=== PATIENT | female | born 1970 | race Native Hawaiian/Other Pacific Islander ===

== ENCOUNTER 2019-04-23 23:08 | Emergency (ER) | payer BC ==
[2019-04-23 23:12] VITALS: TEMP 97.5
--- NOTE | 2019-04-23 23:26 | ED ---
General Adult HPI - General Chief complaint: Shortness of Breath Stated complaint: Shortness of Breath Time Seen by Provider: 04/23/19 23:14 Source: patient Mode of arrival: ambulatory Limitations: no limitations - History of Present Illness Initial comments: This patient is a 49-year-old woman who presents today to be evaluated because she felt like she was having a hard time taking a deep breath in. She states that this came on this evening after she had taken a Claritin D for some sinus congestion that she was having. Patient states that she then felt like she was not getting a full breath. She was not frankly having chest pain or discomfort. She states that that didn't feel like she was short of breath. She has not had fevers or productive cough. No leg pain or swelling. No pleuritic pain no hemoptysis. Onset/Timin -: hour(s) Location: chest Consistency: constant Improves with: none Worsens with: none Associated Symptoms: denies other symptoms Treatments Prior to Arrival: none - Related Data Allergies Allergy/AdvReac Type Severity Reaction Status Date / Time No Known Allergies Allergy Verified 04/23/19 23:12 Review of Systems ROS Statement: Those systems with pertinent positive or pertinent negative responses have been documented in the HPI. ROS Other: All systems not noted in ROS Statement are negative. Constitutional: Denies: fever, chills ENT: Reports: congestion. Denies: throat pain Respiratory: Reports: as per HPI. Denies: cough, dyspnea, wheezes Cardiovascular: Denies: chest pain, palpitations, dyspnea on exertion, edema, syncope Gastrointestinal: Denies: abdominal pain, vomiting, diarrhea Skin: Denies: rash Neurological: Denies: headache, weakness Past Medical History Past Medical History: No Reported History History of Any Multi-Drug Resistant Organisms: None Reported Past Surgical History: No Surgical Hx Reported Past Psychological History: No Psychological Hx Reported Smoking Status: Never smoker Past Alcohol Use History: None Reported Past Drug Use History: None Reported General Exam Limitations: no limitations General appearance: alert, in no apparent distress Head exam: Present: atraumatic, normocephalic Eye exam: Present: normal appearance. Absent: scleral icterus, conjunctival injection ENT exam: Present: normal oropharynx Neck exam: Present: normal inspection Respiratory exam: Present: normal lung sounds bilaterally. Absent: respiratory distress, wheezes, rales, rhonchi, stridor, chest wall tenderness, accessory muscle use, decreased breath sounds, prolonged expiratory Cardiovascular Exam: Present: regular rate, normal rhythm, normal heart sounds. Absent: systolic murmur, diastolic murmur, rubs, gallop GI/Abdominal exam: Present: soft. Absent: distended, tenderness, guarding Back exam: Present: normal inspection Neurological exam: Present: alert Skin exam: Present: warm, dry, intact, normal color. Absent: rash Course Vital Signs 04/23/19 04/24/19 23:09 00:30 Temperature 97.5 F L Pulse Rate 89 78 Respiratory 18 19 Rate Blood Pressure 155/94 144/86 O2 Sat by Pulse 97 Oximetry EKG Findings - EKG Results: EKG: interpreted by AIRAM HUGHESL, sinus rhythm (Rate 81 bpm), normal axis, normal QRS, normal ST/T - VA, Pacemaker, Normal: Normal tracing: normal tracing Medical Decision Making - Lab Data Result diagrams: 04/23/19 23:20 04/23/19 23:20 Lab Results 04/23/19 04/23/19 04/23/19 Range/Units 23:20 23:20 23:20 WBC 9.7 (3.8-10.6) k/uL RBC 5.01 (3.80-5.40) m/uL Hgb 15.1 (11.4-16.0) gm/dL Hct 44.1 (34.0-46.0) % MCV 88.1 (80.0-100.0) fL MCH 30.0 (25.0-35.0) pg MCHC 34.1 (31.0-37.0) g/dL RDW 12.6 (11.5-15.5) % Plt Count 385 (150-450) k/uL Neutrophils % 71 % Lymphocytes % 21 % Monocytes % 5 % Eosinophils % 1 % Basophils % 1 % Neutrophils # 6.9 (1.3-7.7) k/uL Lymphocytes # 2.0 (1.0-4.8) k/uL Monocytes # 0.5 (0-1.0) k/uL Eosinophils # 0.1 (0-0.7) k/uL Basophils # 0.1 (0-0.2) k/uL D-Dimer (<0.60) mg/L FEU Sodium 137 (137-145) mmol/L Potassium 3.8 (3.5-5.1) mmol/L Chloride 102 (98-107) mmol/L Carbon Dioxide 25 (22-30) mmol/L Anion Gap 10 mmol/L BUN 14 (7-17) mg/dL Creatinine 0.67 (0.52-1.04) mg/dL Est GFR (CKD-EPI)AfAm >90 (>60 ml/min/1.73 sqM) Est GFR (CKD-EPI)NonAf >90 (>60 ml/min/1.73 sqM) Glucose 119 H (74-99) mg/dL Calcium 9.7 (8.4-10.2) mg/dL Troponin I <0.012 (0.000-0.034) ng/mL 04/23/19 Range/Units 23:20 WBC (3.8-10.6) k/uL RBC (3.80-5.40) m/uL Hgb (11.4-16.0) gm/dL Hct (34.0-46.0) % MCV (80.0-100.0) fL MCH (25.0-35.0) pg MCHC (31.0-37.0) g/dL RDW (11.5-15.5) % Plt Count (150-450) k/uL Neutrophils % % Lymphocytes % % Monocytes % % Eosinophils % % Basophils % % Neutrophils # (1.3-7.7) k/uL Lymphocytes # (1.0-4.8) k/uL Monocytes # (0-1.0) k/uL Eosinophils # (0-0.7) k/uL Basophils # (0-0.2) k/uL D-Dimer 0.23 (<0.60) mg/L FEU Sodium (137-145) mmol/L Potassium (3.5-5.1) mmol/L Chloride (98-107) mmol/L Carbon Dioxide (22-30) mmol/L Anion Gap mmol/L BUN (7-17) mg/dL Creatinine (0.52-1.04) mg/dL Est GFR (CKD-EPI)AfAm (>60 ml/min/1.73 sqM) Est GFR (CKD-EPI)NonAf (>60 ml/min/1.73 sqM) Glucose (74-99) mg/dL Calcium (8.4-10.2) mg/dL Troponin I (0.000-0.034) ng/mL Disposition Clinical Impression: Adverse reaction to antihistamines Disposition: HOME SELF-CARE Condition: Good Instructions (If sedation given, give patient instructions): Adverse Drug Reaction (ED) Is patient prescribed a controlled substance at d/c from ED?: No Referrals: Stefano Evans DO [Primary Care Provider] - 1-2 days
[2019-04-23 23:44] LABS: Basophils # (A) 0.1 k/uL (0-0.2); Basophils % (A) 1 %; Eosinophils # (A) 0.1 k/uL (0-0.7); Eosinophils % (A) 1 %; HCT 44.1 % (34.0-46.0); HGB 15.1 gm/dL (11.4-16.0); Lymphocytes % (A) 21 %; MCHC 34.1 g/dL (31.0-37.0); MCV 88.1 fL (80.0-100.0); Mean Platelet Volume 6.3; Monocytes # (A) 0.5 k/uL (0-1.0); Monocytes % (A) 5 %; Neutrophils # (A) 6.9 k/uL (1.3-7.7); Neutrophils % (A) 71 %; Platelet Count 385 k/uL (150-450); RBC 5.01 m/uL (3.80-5.40); RDW 12.6 % (11.5-15.5); WBC 9.7 k/uL (3.8-10.6)
--- NOTE | 2019-04-23 23:51 | XR ---
EXAMINATION TYPE: XR chest 2V DATE OF EXAM: 04/23/2019 COMPARISON: NONE HISTORY: Palpitations. Short of breath TECHNIQUE: Frontal and lateral views of the chest are obtained. FINDINGS: Heart and mediastinum are normal. Lungs are clear. Diaphragm is normal. Bony thorax appear s normal. IMPRESSION: Normal chest.
[2019-04-23 23:54] LABS: African American GFR (CKD) >90 (>60 ml/min/1.73 sqM); Anion Gap 10 mmol/L; Blood Urea Nitrogen 14 mg/dL (7-17); Calcium 9.7 mg/dL (8.4-10.2); Carbon Dioxide 25 mmol/L (22-30); Chloride 102 mmol/L (98-107); Glucose 119 mg/dL (74-99); Non-African American GFR(CKD) >90 (>60 ml/min/1.73 sqM); Potassium 3.8 mmol/L (3.5-5.1); Sodium 137 mmol/L (137-145)
[2019-04-24 00:36] VITALS: BP 144/86; PULSE 78; RESP 19
== END 2019-04-24 01:18 | disposition home or self-care (01) ==
LOC: EC 23:08
DX: R06.02 Shortness of breath (principal); T45.0X5A Adverse effect of antiallergic and antiemetic drugs, initial encounter
CPT/HCPCS: 36415; 71046; 80048; 84484; 85025; 85379; 93005; 99285

== ENCOUNTER → 2020-11-17 | Outpatient (CLI) | payer BC | END | disposition home or self-care (01) | CPT/HCPCS: 77067 ==

== ENCOUNTER → 2020-11-26 | Outpatient (CLI) | payer BC | END | disposition home or self-care (01) ==

== ENCOUNTER → 2021-06-15 | Outpatient (CLI) | payer BC ==
--- NOTE | 2021-06-15 14:49 | MM ---
Reason for exam: follow-up at short interval from prior study. Last mammogram was performed 7 months ago. History: Patient is nulliparous. Family history of breast cancer in mother at age 60 and breast cancer in sister at age 46. Physical Findings: Nurse did not find any significant physical abnormalities on exam. MG 3D Diag Mammo W/Cad RT CC and MLO view(s) were taken of the right breast. Prior study comparison: November 26, 2020, bilateral MG 3d work up w/cad MAE. November 17, 2020, bilateral MG screening mammo w CAD. The breast tissue is heterogeneously dense. This may lower the sensitivity of mammography. Stable benign calcifications. There is no discrete abnormality. No significant new findings when compared with previous films. These results were verbally communicated with the patient and result sheet given to the patient on 06/15/21. ASSESSMENT: Benign, BI-RAD 2 RECOMMENDATION: Return to routine screening mammogram schedule for both breasts. Back on schedule for November 2021.
== END | disposition home or self-care (01) ==
LOC: RADMAMWWP 14:09
PROVIDERS: ATTEND Family Medicine
DX: R92.8 Other abnormal and inconclusive findings on diagnostic imaging of breast (principal); Z80.3 Family history of malignant neoplasm of breast
CPT/HCPCS: 77061; 77065

== ENCOUNTER → 2024-03-25 | Outpatient (CLI) | payer BC ==
--- NOTE | 2024-03-31 09:10 | MM ---
Reason for Exam: Screening (asymptomatic). Last mammogram was performed 3 year(s) and 4 month(s) ago. Patient History: Menarche at age 15. Patient has no children. Perimenopausal. Sister had breast cancer, age 46. Mother had breast cancer, age 60. Risk Values: Makayla 5 year model risk: 3.7%. NCI Lifetime model risk: 26.9%. Prior Study Comparison: 11/17/2020 Bilateral Screening Mammogram, [facility]. 11/26/2020 Bilateral Diagnostic Mammogram, [facility]. 06/15/2021 Right Diagnostic Mammogram, [facility]. Tissue Density: The breasts are heterogeneously dense, which may obscure small masses. Findings: Analyzed By CAD. Right breast: There is no suspicious group of microcalcifications or new suspicious mass. Left breast: There is no suspicious group of microcalcifications or new suspicious mass. Overall Assessment: Negative, BI-RAD 1 Management: Screening Mammogram of both breasts in [address] [facility] will attempt to contact patient to return for supplemental views and ultrasound if indicated. Patient should continue monthly self-breast exams. A clinical breast exam by your physician is recommended on an annual basis. This exam should not preclude additional follow-up of suspicious palpable abnormalities. Note on Makayla scores and lifetime risk: 1. A Makayla score greater than 3% is considered moderate risk. If this is the case, consider specialist referral to assess eligibility for a risk reducing agent. 2. If overall lifetime risk for the development of breast cancer is 20% or higher, the patient may qualify for future screening with alternating mammogram and breast MRI. [facility], , 03/31/2024 9:08 AM. Electronically signed and approved by: Cesar Workman DO
== END | disposition home or self-care (01) ==
LOC: RADMAMWWP 15:44
PROVIDERS: ATTEND Family Medicine
DX: Z12.31 Encounter for screening mammogram for malignant neoplasm of breast (principal); Z80.3 Family history of malignant neoplasm of breast; R92.333 Mammographic heterogeneous density, bilateral breasts
CPT/HCPCS: 77063; 77067